=== PATIENT | male | born 1965 | race American Indian/Alaskan Native ===

== ENCOUNTER 2018-02-02 10:44 | Emergency (ER) | payer MEDICARE ==
[2018-02-02] MEDS ORDERED: ULTRAM PO ONE (16:00)
--- NOTE | 2018-02-02 16:04 | Emergency Department Report ---
ED Lower Extremity HPI - General Chief Complaint: Back Pain/Injury Stated Complaint: BACK HURTS REALLY BAD Time Seen by Provider: 02/02/18 15:52 Source: patient Mode of arrival: Ambulatory Limitations: No Limitations - History of Present Illness Initial Comments: This is a 52-year-old -British male presents with pain to left foot and lower back from a fall 2 days ago. Patient states wooden floor in home gave way while he was walking in dining area and he fell through. Patient states when he fell he landed backwards into dining table hitting his lower back. He is now having pain to the left back and left foot. He has not taken any medication or applied any ice or heat to area. Patient admits to having CHF, Hypertension, and arthritis. He noticed swelling to the left blue and decided to come in for evaluation. Patient reports pain currently is 10 out of 10 to back and left foot. Pain is aggravated by movement and weightbearing. Denies loss of consciousness, numbness or tingling, erythema, deformity, break in skin , and fever. MD Complaint: foot injury (left foot pain), other (low back pain on left side) Onset/Timin -: days(s) Injury: Foot: Left (swelling and pain with weightbearing) Type of Injury: hyperflexion Place: home Severity: moderate Severity scale (0 -10): 8 Improves With: nothing Worsens With: weight bearing, movement Context: fall Associated Symptoms: swelling, able to partially bear weight, ambulatory. denies: snap/pop sensation, numbness, tingling, unable to bear weight - Related Data Home Medications Medication Instructions Recorded Confirmed Last Taken Potassium Chloride [K-Dur] 20 meq PO BID 09/16/14 09/21/15 Unknown Amiodarone [Cordarone 200 MG TAB] 200 mg PO BID 09/21/15 09/21/15 Unknown AtorvaSTATin [Lipitor] 10 mg PO QHS 09/21/15 09/21/15 Unknown Carvedilol [Coreg] 15.625 mg PO BID 09/21/15 09/21/15 Unknown Clopidogrel Bisulfate [Plavix] 75 mg PO DAILY 09/21/15 09/21/15 Unknown Ferrous Sulfate [Feosol 325 MG tab] 325 mg PO BID 09/21/15 09/21/15 Unknown Furosemide [Lasix TAB] 40 mg PO QDAY 09/21/15 09/21/15 Unknown Furosemide [Lasix TAB] 80 mg PO QDAY 09/21/15 09/21/15 Unknown Previous Rx's Medication Instructions Recorded Last Taken Type Valsartan [Diovan] 80 mg PO QDAY #30 tablet 09/24/15 Unknown Rx Docusate Sodium [Stool Softener] 100 mg PO BID #20 capsule 02/02/18 Unknown Rx Ibuprofen [Motrin 600 MG tab] 600 mg PO Q8H PRN #15 tablet 02/02/18 Unknown Rx Polyethylene Glycol 3350 [Miralax 17 gm PO BID #14 packet 02/02/18 Unknown Rx 3350] traMADol [Ultram 50 MG tab] 50 mg PO Q6HR PRN #15 tablet 02/02/18 Unknown Rx Allergies Allergy/AdvReac Type Severity Reaction Status Date / Time No Known Allergies Allergy Verified 02/02/18 11:13 ED Review of Systems ROS: Stated complaint: BACK HURTS REALLY BAD Other details as noted in HPI Constitutional: denies: chills, fever Respiratory: denies: cough, shortness of breath, wheezing Cardiovascular: denies: chest pain, palpitations Gastrointestinal: denies: abdominal pain, nausea, vomiting, diarrhea Musculoskeletal: back pain (low back pain worse on the left), arthralgia (left foot pain). denies: joint swelling Skin: denies: rash, lesions Neurological: denies: headache, weakness, paresthesias Psychiatric: denies: anxiety, depression ED Past Medical Hx - Past Medical History Hx Hypertension: Yes Hx Congestive Heart Failure: Yes Hx Diabetes: No Hx Deep Vein Thrombosis: No Hx Arthritis: Yes Hx Asthma: No Hx COPD: No Hx HIV: No Additional medical history: triple bypass, gout, A Fib, pacemaker - Surgical History Hx Open Heart Surgery: Yes (1996) Hx Pacemaker: Yes (L chest) Hx Internal Defibrillator: No Additional Surgical History: quad bypass, hernia repair, sinus surgery. Pacemaker removed - Social History Smoking Status: Never Smoker Substance Use Type: None - Medications Home Medications: Home Medications Medication Instructions Recorded Confirmed Last Taken Type Potassium Chloride [K-Dur] 20 meq PO BID 09/16/14 09/21/15 Unknown History Amiodarone [Cordarone 200 MG TAB] 200 mg PO BID 09/21/15 09/21/15 Unknown History AtorvaSTATin [Lipitor] 10 mg PO QHS 09/21/15 09/21/15 Unknown History Carvedilol [Coreg] 15.625 mg PO BID 09/21/15 09/21/15 Unknown History Clopidogrel Bisulfate [Plavix] 75 mg PO DAILY 09/21/15 09/21/15 Unknown History Ferrous Sulfate [Feosol 325 MG tab] 325 mg PO BID 09/21/15 09/21/15 Unknown History Furosemide [Lasix TAB] 40 mg PO QDAY 09/21/15 09/21/15 Unknown History Furosemide [Lasix TAB] 80 mg PO QDAY 09/21/15 09/21/15 Unknown History Valsartan [Diovan] 80 mg PO QDAY #30 tablet 09/24/15 Unknown Rx Docusate Sodium [Stool Softener] 100 mg PO BID #20 capsule 02/02/18 Unknown Rx Ibuprofen [Motrin 600 MG tab] 600 mg PO Q8H PRN #15 tablet 02/02/18 Unknown Rx Polyethylene Glycol 3350 [Miralax 17 gm PO BID #14 packet 02/02/18 Unknown Rx 3350] traMADol [Ultram 50 MG tab] 50 mg PO Q6HR PRN #15 tablet 02/02/18 Unknown Rx ED Physical Exam - General Limitations: No Limitations General appearance: alert, in no apparent distress - Respiratory Respiratory exam: Present: normal lung sounds bilaterally. Absent: respiratory distress - Cardiovascular Cardiovascular Exam: Present: regular rate, normal rhythm. Absent: systolic murmur, diastolic murmur, rubs, gallop - GI/Abdominal GI/Abdominal exam: Present: soft, normal bowel sounds. Absent: organomegaly, mass - Extremities Exam Extremities exam: Present: normal capillary refill. Absent: calf tenderness - Expanded Lower Extremity Exam Left Hip exam: Present: normal inspection, full ROM Upper Leg exam: Present: normal inspection, full ROM Knee exam: Present: normal inspection, full ROM Lower Leg exam: Present: normal inspection, full ROM Ankle exam: Present: normal inspection, full ROM Foot/Toe exam: Present: tenderness (tenderness and erythema of 1st MP joint), swelling, erythema. Absent: abrasion, laceration, ecchymosis, deformity, crepidus, dislocation, amputation, puncture wound, foreign body, calcaneal tenderness, tenderness at base of 5th metatarsal, nail avulsion, subungual hematoma Neuro vascular tendon exam: Present: no vascular compromise Gait: Positive: observed and limited by pain - Back Exam Back exam: Present: tenderness, paraspinal tenderness. Absent: CVA tenderness ( R), CVA tenderness (L), muscle spasm, rash noted - Neurological Exam Neurological exam: Present: alert, oriented X3 - Psychiatric Psychiatric exam: Present: normal affect, normal mood - Skin Skin exam: Present: warm, dry, intact, normal color. Absent: rash ED Course Vital Signs 02/02/18 02/02/18 11:13 18:50 Temperature 97.8 F Pulse Rate 71 75 Respiratory 16 20 Rate Blood Pressure 147/88 Blood Pressure 103/73 [Right] O2 Sat by Pulse 100 97 Oximetry ED Lower Extremity MDM - Radiology Data Radiology results: report reviewed, image reviewed EXAM: XR SPINE LUMBOSACRAL 2-3V HISTORY: low back pain worse on left TECHNIQUE: 3 views of the lumbar spine PRIORS: None. FINDINGS: There is severe mural calcified atherosclerotic plaque in the abdominal aorta without evidence of aneurysm formation. Nonspecific calcification in medial left abdomen may be vascular. Differential includes left renal calculi. Prominent stool may reflect constipation surgical coils noted in the pelvis. Vertebral compression fracture: None Anterolisthesis: L4-5 slight Retrolisthesis: L5-S1 slight Disc narrowing: L4-5 slight, L5-S1 moderate to severe Degenerative change: Multilevel at the vertebral endplates and facet joints. IMPRESSION: No acute skeletal pathology Multilevel degenerative change, spondylolisthesis, and disc narrowing Left medial mid abdominal calcification may be vascular from atherosclerosis. Differential includes left renal calculi Prominent stool may reflect constipation Severe mural calcified plaque in the abdominal aorta and iliac arteries EXAM: XR FOOT 2V LT HISTORY: left foot pain TECHNIQUE: 2 views of the left foot PRIORS: None. FINDINGS: Moderate degenerative change of the hallux MTP joint with minimal marginal bone spurring, severe joint space narrowing, and articular margin hypertrophic change. Subarticular sclerosis also noted at this joint. There is no radiographic evidence of definite acute fracture or dislocation. No evidence of osseous lesion. IMPRESSION: No acute skeletal pathology Hallux MTP joint degenerative arthrosis with joint space narrowing - Medical Decision Making This is a 52 y.o. male presents with low back pain and left foot pain from falling through a hardwood floor at home 2 days ago. Patient was examined by me. Vitals are normal and patient is in no acute distress. X-ray of L-spine and left foot obtained a rib by radiologist. I reviewed report, L-Spine: No acute skeletal pathology. Multilevel degenerative change, spondylolisthesis, and disc narrowing. Left medial mid abdominal calcification may be vascular from atherosclerosis. Differential includes left renal calculi. Prominent stool may reflect constipation. Severe mural calcified plaque in the abdominal aorta and iliac arteries. XR left foot: No acute skeletal pathology. Hallux MTP joint degenerative arthrosis with joint space narrowing. Patient will be treated for constipation with MiraLAX and docusate. Referral to vascular. Follow-up with orthopedic surgery for chronic back pain and left foot pain. Patient informed of results. Start ibuprofen and tramadol for pain. Plan discussed with patient to discharge home and treat outpatient. He agrees with ER plan. Patient discharged home in stable condition. Follow up with PCP as well. Critical care attestation.: If time is entered above; I have spent that time in minutes in the direct care of this critically ill patient, excluding procedure time. ED Disposition Clinical Impression: Constipation by delayed colonic transit, Spondylolisthesis at L4-L5 level, Atherosclerosis of abdominal aorta, Left foot pain Degenerative arthritis of lumbar spine Qualifiers: Spinal osteoarthritis complication: with radiculopathy Qualified Code(s): M47.26 - Other spondylosis with radiculopathy, lumbar region Fall Qualifiers: Encounter type: initial encounter Qualified Code(s): W19.XXXA - Unspecified fall, initial encounter Low back pain Qualifiers: Chronicity: acute Back pain laterality: left Sciatica presence: without sciatica Qualified Code(s): M54.5 - Low back pain Degenerative arthritis of left foot Qualifiers: Osteoarthritis type: primary Qualified Code(s): M19.072 - Primary osteoarthritis, left ankle and foot Disposition: DC-01 TO HOME OR SELFCARE Is pt being admited?: No Does the pt Need Aspirin: No Condition: Stable Instructions: Lumbar Radiculopathy (ED), Arthralgia (ED) Additional Instructions: Rest Use ice or heat on affected area for 20 minutes and off for 2 hours. Take pain medication as needed for pain. Follow-up with vascular for atherosclerosis as discussed. Follow up with Primary Care Provider in 2-3 days. Prescriptions: Docusate Sodium [Stool Softener] 100 mg PO BID #20 capsule Ibuprofen [Motrin 600 MG tab] 600 mg PO Q8H PRN #15 tablet PRN Reason: Pain Polyethylene Glycol 3350 [Miralax 3350] 17 gm PO BID #14 packet traMADol [Ultram 50 MG tab] 50 mg PO Q6HR PRN #15 tablet PRN Reason: Pain Referrals: MATTY POPE MD [Staff Physician] - 3-5 Days LAVERN GARSIA MD [Staff Physician] - 3-5 Days [facility] [Outside] - 3-5 Days [facility] [Provider Group] - 3-5 Days Time of Disposition: 18:47 Print Language: KHMER
--- NOTE | 2018-02-02 18:17 | XRay Report ---
FINAL REPORT EXAM: XR FOOT 2V LT HISTORY: left foot pain TECHNIQUE: 2 views of the left foot PRIORS: None. FINDINGS: Moderate degenerative change of the hallux MTP joint with minimal marginal bone spurring, severe joint space narrowing, and articular margin hypertrophic change. Subarticular sclerosis also noted at this joint. There is no radiographic evidence of definite acute fracture or dislocation. No evidence of osseous lesion. IMPRESSION: No acute skeletal pathology Hallux MTP joint degenerative arthrosis with joint space narrowing
--- NOTE | 2018-02-02 18:23 | XRay Report ---
FINAL REPORT EXAM: XR SPINE LUMBOSACRAL 2-3V HISTORY: low back pain worse on left TECHNIQUE: 3 views of the lumbar spine PRIORS: None. FINDINGS: There is severe mural calcified atherosclerotic plaque in the abdominal aorta without evidence of aneurysm formation. Nonspecific calcification in medial left abdomen may be vascular. Differential includes left renal calculi. Prominent stool may reflect constipation surgical coils noted in the pelvis. Vertebral compression fracture: None Anterolisthesis: L4-5 slight Retrolisthesis: L5-S1 slight Disc narrowing: L4-5 slight, L5-S1 moderate to severe Degenerative change: Multilevel at the vertebral endplates and facet joints. IMPRESSION: No acute skeletal pathology Multilevel degenerative change, spondylolisthesis, and disc narrowing Left medial mid abdominal calcification may be vascular from atherosclerosis. Differential includes left renal calculi Prominent stool may reflect constipation Severe mural calcified plaque in the abdominal aorta and iliac arteries
[2018-02-02 18:51] VITALS: BP 103/73
== END 2018-02-02 19:02 | disposition home or self-care (01) ==
LOC: ED 10:44
DX: M47.26 Other spondylosis with radiculopathy, lumbar region (principal); M19.072 Primary osteoarthritis, left ankle and foot; I70.0 Atherosclerosis of aorta; K59.01 Slow transit constipation; I11.0 Hypertensive heart disease with heart failure; I50.9 Heart failure, unspecified; M10.9 Gout, unspecified; Z98.890 Other specified postprocedural states
CPT/HCPCS: 72100; 99283